=== PATIENT | male | born 1955 | race Caucasian/White ===

== ENCOUNTER → 2017-10-09 16:55 | Outpatient (CLI) | payer OTHER, SELFPAY ==
[2017-10-09 17:15] LABS: Prothrombin Time (Protime)PT. 57.1 SECONDS (11.7-14.9)
[2017-10-09 17:25] LABS: International Normalized Ratio 6.4
== END ==
PROVIDERS: Visit Provider Internal Medicine Cardiovascular Disease
DX: I48.2 Chronic atrial fibrillation (principal)
CPT/HCPCS: 85610

== ENCOUNTER 2021-05-11 15:57 | Outpatient (CLI) | payer MEDICARE, OTHER, SELFPAY ==
[2021-05-11 16:24] LABS: International Normalized Ratio 2.2; Prothrombin Time (Protime)PT. 23.6 SECONDS (11.7-14.9)
== END 2021-05-11 23:59 | disposition short-term general hospital (02) ==
PROVIDERS: Visit Provider Family Medicine
DX: Z79.01 Long term (current) use of anticoagulants (principal)
CPT/HCPCS: 85610

== ENCOUNTER → 2021-12-21 | Outpatient (CLI) | payer MEDICARE, OTHER, SELFPAY ==
[2021-12-21 11:02] LABS: International Normalized Ratio 1.6
== END | disposition home or self-care (01) ==
LOC: LABSPEC 10:27
PROVIDERS: PCP Family Medicine; Visit Provider Family Medicine
DX: Z79.01 Long term (current) use of anticoagulants (principal)
CPT/HCPCS: 85610